=== PATIENT | male | born 1960 | race Two or more races ===

== ENCOUNTER 2021-07-25 07:12 | Outpatient (CLI) | payer OTHER | END 2021-07-25 07:19 | disposition home or self-care (01) | LOC: LAB 07:12 | PROVIDERS: ATTEND General Practice | DX: R73.02 Impaired glucose tolerance (oral) (principal); I10 Essential (primary) hypertension; E78.5 Hyperlipidemia, unspecified; E55.9 Vitamin D deficiency, unspecified; N39.0 Urinary tract infection, site not specified; E11.9 Type 2 diabetes mellitus without complications; Z12.11 Encounter for screening for malignant neoplasm of colon; D64.9 Anemia, unspecified; N40.0 Benign prostatic hyperplasia without lower urinary tract symptoms; R42 Dizziness and giddiness; K62.5 Hemorrhage of anus and rectum; R80.0 Isolated proteinuria; E03.9 Hypothyroidism, unspecified ==

== ENCOUNTER 2021-08-08 07:52 | Outpatient (CLI) | payer OTHER | END 2021-08-08 08:19 | disposition home or self-care (01) | LOC: LAB 07:52 | PROVIDERS: ATTEND General Practice | DX: E25.0 Congenital adrenogenital disorders associated with enzyme deficiency (principal); E34.9 Endocrine disorder, unspecified; E61.1 Iron deficiency; E03.8 Other specified hypothyroidism; R73.02 Impaired glucose tolerance (oral); K62.5 Hemorrhage of anus and rectum; R80.0 Isolated proteinuria; E03.9 Hypothyroidism, unspecified; D64.9 Anemia, unspecified; E55.9 Vitamin D deficiency, unspecified; R89.1 Abnormal level of hormones in specimens from other organs, systems and tissues; E56.9 Vitamin deficiency, unspecified; N40.0 Benign prostatic hyperplasia without lower urinary tract symptoms; R42 Dizziness and giddiness; E83.42 Hypomagnesemia; Z12.11 Encounter for screening for malignant neoplasm of colon ==